=== PATIENT | male | born 1955 ===

== ENCOUNTER → 2024-06-25 07:39 | Outpatient (REF) | payer MEDICARE, SELFPAY ==
[2024-06-25 08:29] LABS: % Basophils 0.9 % (0-2); % Immature Granulocytes 0.3 % (0-0.5); % Monocytes 8.6 % (1.7-9.3); % Neutrophils 53.2 % (42.2-75.2); Absolute Basophils 0.1 10^3/uL (0-0.2); Absolute Eosinophils 0.4 10^3/uL (0-0.7); Absolute Lymphocytes 3.1 10^3/uL (1.2-3.4); Absolute Monocytes 0.8 10^3/uL (0.1-0.6); Absolute Neutrophils 4.9 10^3/uL (1.4-6.5); Hemoglobin 15.1 g/dL (13.0-18.0); Mean Corpuscular Hgb 32.5 pg (27.0-31.0); Mean Corpuscular Volume 90.5 fL (80.0-94.0); Mean Platelet Volume 10.2 fL (7.4-10.4); Nucleated Red Blood Cells % 0 % (-); Platelet Count 237 10^3/uL (130-400); Red Blood Cell Count 4.64 10^6/uL (4.70-6.10); Red Cell Dist. Width 12.5 % (11.5-14.5); White Blood Cell Count 9.3 10^3/uL (4.8-10.8)
[2024-06-25 09:08] LABS: ALT (SGPT) 37 U/L (0-50); AST (SGOT) 35 U/L (17-59); Albumin 4.6 g/dl (3.5-5.0); Alkaline Phosphatase 71 U/L (38-126); Blood Urea Nitrogen 12 mg/dl (9-20); Calcium 9.5 mg/dl (8.4-10.2); Carbon Dioxide 26 mmol/L (22-30); Chloride 105 mmol/L (98-107); Glucose 123 mg/dl (70-99); HDL Cholesterol 44 mg/dl; LDL Cholesterol, Calculated 159 mg/dl; Potassium 4.5 mmol/L (3.5-5.1); Sodium 141 mmol/L (135-145); Total Bilirubin 0.8 mg/dl (0.2-1.3); Total Cholesterol 239 mg/dl (50-199); Total Protein 7.4 g/dl (6.3-8.2); Triglyceride 181 mg/dl (10-149); Very Low Density Lipoprotein 36 mg/dl (0-30); eGFR > 60.00
== END ==
LOC: REG 07:39
PROVIDERS: ATTENDING PHYSICIAN Internal Medicine Cardiovascular Disease
DX: E78.2 Mixed hyperlipidemia (principal); R07.89 Other chest pain
CPT/HCPCS: 36415; 80053; 80061; 85025

== ENCOUNTER → 2024-07-06 08:08 | Outpatient (REF) | payer MEDICARE, SELFPAY | LOC: HWRCS 08:08 | PROVIDERS: ATTENDING PHYSICIAN Internal Medicine Cardiovascular Disease | DX: R07.89 Other chest pain (principal) | CPT/HCPCS: 78452; 93017; A9500 ==

== ENCOUNTER → 2024-07-29 08:19 | Outpatient (REF) | payer MEDICARE, SELFPAY | LOC: HWRCS 08:19 | PROVIDERS: ATTENDING PHYSICIAN Internal Medicine Cardiovascular Disease | DX: R07.89 Other chest pain (principal) | CPT/HCPCS: 93306 ==